=== PATIENT | male | born 1985 | race Caucasian/White ===

== ENCOUNTER 2019-02-06 19:23 | Inpatient (IN) | payer OTHER ==
[2019-02-06 21:29] VITALS: BMI 26.6
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
[2019-02-06] MEDS ORDERED: MAGNESIUM HYDROX 2400MG/30ML ORAL SUSPENSION 30 ML CUP PO PRN (23:01)
[2019-02-06] MEDS ORDERED: MENTHOL/PHENOL 1 EACH UD MM PRN (23:01)
[2019-02-06] MEDS ORDERED: MAG HYDROX/AL HYDROX/SIMETH 30 ML UNIT-DOSE CUP PO PRN (23:01)
[2019-02-06] MEDS ORDERED: MELATONIN 5 MG TABLETS PO PRN (23:01)
[2019-02-06] MEDS ORDERED: IBUPROFEN 400 MG TABLET (FP) PO PRN (23:01)
[2019-02-06] MEDS ORDERED: guaiFENesin 200 MG/10 ML 10 ML UNIT-DOSE CUPS PO PRN (23:01)
[2019-02-06] MEDS ORDERED: P-EPHED 60MG/TRIPROLIDI 2.5MG TABLET PO PRN (23:01)
[2019-02-06] MEDS ORDERED: NICOTINE POLACRILEX 2 MG GUM BUC PRN (23:01)
[2019-02-06] MEDS ORDERED: hydrOXYzine PAMOATE 25 MG CAPSULE (FP) PO PRN (23:01)
[2019-02-06] MEDS ORDERED: ACETAMINOPHEN 325 MG TABLET (FP) PO PRN ×2 (23:01)
[2019-02-06] MEDS ORDERED: BISMUTH SUBSALICYLATE 524 MG/30 ML UD PO PRN (23:01)
[2019-02-06] MEDS ORDERED: DICYCLOMINE HCL 10 MG CAPSULE PO PRN (23:01)
[2019-02-06] MEDS ORDERED: ONDANSETRON *ODT* 4 MG TABLET SL PRN (23:01)
[2019-02-06] MEDS ORDERED: MAGNESIUM CITRATE 300 ML BOTTLE PO PRN (23:01)
[2019-02-06] MEDS ORDERED: cloNIDine HCL 0.1 MG TABLET PO PRN (23:06)
[2019-02-07] MEDS: diazePAM 5 MG TABLET PO SCH ×4 (06:07→22:03)
--- NOTE | 2019-02-07 09:20 | PN ---
S CIWA - CIWA Score Nausea/Vomitin-Mild Nausea/No Vomiting Muscle Tremors: 4-Moderate,w/Arms Extend Anxiety: 4-Mod. Anxious/Guarded Agitation: 3 Paroxysmal Sweats: 2 Orientation: 0-Oriented Tacttile Disturbances: 1-Very Mild Itch/Numbness Auditory Disturbances: 0-None Visual Disturbances: 0-None Headache: 2-Mild CIWA-Ar Total Score: 17 [facility] Progress Note (SOAP) Subjective: 34 years old male admitted on 02/06/19 for alcohol and benzo withdrawal sx management treated with valium detox regimen patient tolerated well methadone 30 mg verified last dose 02/03/19 continue methadone 30 mg po daily along with supportive therapies patient reported that his legs paralyzed "I do not want to talk about" ambulating with wheelchair x 6 months patient is alert oriented x 3 speech clearly coherently Objective: 02/07/19 09:23 Vital Signs Temperature 95.8 F L 02/07/19 06:22 Pulse Rate 55 L 02/07/19 06:22 Respiratory Rate 18 02/07/19 06:22 Blood Pressure 86/53 L 02/07/19 06:22 O2 Sat by Pulse Oximetry (%) 02/07/19 09:24 lab pending Assessment: 02/07/19 09:24 alcohol and benzo withdrawal sx Plan: continue valium detox regimen
[2019-02-07] MEDS: NICOTINE 21 MG/24 HOURS TOPICAL PATCH TD SCH (09:48)
[2019-02-07] MEDS: diazePAM 5 MG TABLET PO PRN ×2 (09:48→17:09)
[2019-02-07] MEDS: PRENATAL VITAMINS W/ FOLIC ACID TABLET (FP) PO SCH (09:51)
[2019-02-07] MEDS ORDERED: METHADONE HCL 10 MG TABLET PO ONE (10:00)
[2019-02-07 10:12] LABS: HEMATOCRIT 32.6 % (35.4-49); HEMOGLOBIN 11.5 GM/dL (11.7-16.9); MCH 34.1 pg (25.7-33.7); MCHC 35.1 g/dl (32.0-35.9); MEAN CELL VOLUME 96.9 fl (80-96); MEAN PLT VOLUME 8.1 fl (7.5-11.1); PLATELET COUNT 247 K/MM3 (134-434); RBC 3.37 M/mm3 (4.00-5.60); RDW 13.5 % (11.9-15.9); WHITE BLOOD COUNT 5.1 K/mm3 (4.0-10.0)
--- NOTE | 2019-02-07 10:24 | EKG ---
Test Reason : Blood Pressure : / mmHG Vent. Rate : 057 BPM Atrial Rate : 057 BPM P-R Int : 144 ms QRS Dur : 102 ms QT Int : 424 ms P-R-T Axes : 010 -02 023 degrees QTc Int : 412 ms SINUS BRADYCARDIA CANNOT RULE OUT ANTERIOR INFARCT , AGE UNDETERMINED ABNORMAL ECG NO PREVIOUS ECGS AVAILABLE Confirmed by MD Rosemary, Az ([id number]) on 02/07/2019 10:24:16 AM Referred By: Confirmed By:Az Riley MD
[2019-02-07 10:30] LABS: ALBUMIN 3.3 g/dl (3.4-5.0); BILIRUBIN,TOTAL 0.4 mg/dL (0.2-1); BLOOD UREA NITROGEN 13.9 mg/dL (7-18); CALCIUM 9.1 mg/dL (8.5-10.1); CREATININE 0.9 mg/dL (0.55-1.3); POTASSIUM 3.8 mmol/L (3.5-5.1); TOT PROT 6.5 g/dl (6.4-8.2)
[2019-02-07] MEDS: METHOCARBAMOL 500 MG TABLET PO PRN ×2 (12:35)
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
[2019-02-07] MEDS: SUVOREXANT 10 MG TABLET PO PRN (22:03)
[2019-02-07] MEDS: THIAMINE HCL 100 MG TABLET (FP) PO SCH (22:04)
[2019-02-08] MEDS: METHADONE HCL 10 MG TABLET PO SCH (06:09)
[2019-02-08] MEDS: diazePAM 5 MG TABLET PO SCH ×2 (06:16→18:17)
[2019-02-08] MEDS: METHOCARBAMOL 500 MG TABLET PO PRN ×3 (08:50→22:05)
[2019-02-08] MEDS: diazePAM 5 MG TABLET PO PRN ×3 (08:51→22:05)
--- NOTE | 2019-02-08 09:15 | PN ---
S CIWA - CIWA Score Nausea/Vomitin-Mild Nausea/No Vomiting Muscle Tremors: 4-Moderate,w/Arms Extend Anxiety: 3 Agitation: 3 Paroxysmal Sweats: 2 Orientation: 0-Oriented Tacttile Disturbances: 1-Very Mild Itch/Numbness Auditory Disturbances: 0-None Visual Disturbances: 0-None Headache: 0-None Present CIWA-Ar Total Score: 14 [facility] Progress Note (SOAP) Subjective: 34 years old male admitted on 02/06/19 for alcohol and benzo withdrawal sx management treated with valium detox regimen ambulating with wheelchair on hallway patient reported that he is taking neurontin 800 mg po 3-4 times daily consumer loan underwriter call [phone] no answer consumer loan underwriter call [phone] no record consumer loan underwriter call [phone] no record consumer loan underwriter call [phone] phone disconnected begin neurontine 100mg po tid Objective: 02/08/19 14:05 Vital Signs Temperature 97.2 F L 02/08/19 13:54 Pulse Rate 80 02/08/19 13:54 Respiratory Rate 18 02/08/19 13:54 Blood Pressure 125/78 02/08/19 13:54 O2 Sat by Pulse Oximetry (%) Laboratory Last Values WBC 5.1 K/mm3 (4.0-10.0) 02/07/19 07:45 RBC 3.37 M/mm3 (4.00-5.60) L 02/07/19 07:45 Hgb 11.5 GM/dL (11.7-16.9) L 02/07/19 07:45 Hct 32.6 % (35.4-49) L 02/07/19 07:45 MCV 96.9 fl (80-96) H 02/07/19 07:45 MCH 34.1 pg (25.7-33.7) H 02/07/19 07:45 MCHC 35.1 g/dl (32.0-35.9) 02/07/19 07:45 RDW 13.5 % (11.9-15.9) 02/07/19 07:45 Plt Count 247 K/MM3 (134-434) 02/07/19 07:45 MPV 8.1 fl (7.5-11.1) 02/07/19 07:45 Sodium 138 mmol/L (136-145) 02/07/19 07:45 Potassium 3.8 mmol/L (3.5-5.1) 02/07/19 07:45 Chloride 104 mmol/L (98-107) 02/07/19 07:45 Carbon Dioxide 28 mmol/L (21-32) 02/07/19 07:45 Anion Gap 6 MMOL/L (8-16) L 02/07/19 07:45 BUN 13.9 mg/dL (7-18) 02/07/19 07:45 Creatinine 0.9 mg/dL (0.55-1.3) 02/07/19 07:45 Est GFR (CKD-EPI)AfAm 129.61 02/07/19 07:45 Est GFR (CKD-EPI)NonAf 111.83 02/07/19 07:45 Random Glucose 109 mg/dL (74-106) H 02/07/19 07:45 Calcium 9.1 mg/dL (8.5-10.1) 02/07/19 07:45 Total Bilirubin 0.4 mg/dL (0.2-1) 02/07/19 07:45 AST 43 U/L (15-37) H 02/07/19 07:45 ALT 81 U/L (13-61) H 02/07/19 07:45 Alkaline Phosphatase 82 U/L (45-117) 02/07/19 07:45 Total Protein 6.5 g/dl (6.4-8.2) 02/07/19 07:45 Albumin 3.3 g/dl (3.4-5.0) L 02/07/19 07:45 RPR Titer Nonreactive (NONREACTIVE) 02/07/19 07:45 lab noted Assessment: 02/08/19 14:06 alcohol and benzo withdrawal sx Plan: continue valium detox regimen
[2019-02-08] MEDS: PRENATAL VITAMINS W/ FOLIC ACID TABLET (FP) PO SCH (10:14)
[2019-02-08] MEDS: NICOTINE 21 MG/24 HOURS TOPICAL PATCH TD SCH (10:14)
--- NOTE | 2019-02-08 10:50 | EKG ---
Test Reason : Blood Pressure : / mmHG Vent. Rate : 050 BPM Atrial Rate : 050 BPM P-R Int : 146 ms QRS Dur : 096 ms QT Int : 452 ms P-R-T Axes : 010 -03 019 degrees QTc Int : 412 ms SINUS BRADYCARDIA OTHERWISE NORMAL ECG WHEN COMPARED WITH ECG OF 06-FEB-2019 23:55, NO SIGNIFICANT CHANGE WAS FOUND Confirmed by BENJAMIN ÁLVAREZ MD ([id number]) on 02/08/2019 10:49:25 AM Referred By: STEVE Confirmed By:BENJAMIN ÁLVAREZ MD
[2019-02-08] MEDS: GABAPENTIN 300 MG CAPSULE (FP) PO SCH ×2 (15:52→22:06)
[2019-02-08] MEDS: SUVOREXANT 10 MG TABLET PO PRN (22:05)
[2019-02-08] MEDS: THIAMINE HCL 100 MG TABLET (FP) PO SCH (22:06)
[2019-02-09] MEDS: GABAPENTIN 300 MG CAPSULE (FP) PO SCH ×3 (05:49→22:21)
[2019-02-09] MEDS: METHADONE HCL 10 MG TABLET PO SCH (05:49)
[2019-02-09] MEDS ORDERED: diazePAM 5 MG TABLET PO ONE (06:00)
--- NOTE | 2019-02-09 09:30 | PN ---
Psychiatric Progress Note Vital Signs: Vital Signs Period Temp Pulse Resp BP Sys/Long Pulse Ox Last 24 Hr 95.9 F-97.7 F 79-88 18-18 121-135/68-90 Date of Session: 02/09/19 Chief Complaint:: "i'm having anxiety and i'm having trouble sleeping. HPI: Patient admitted to for alcohol, opioid, cocaine/crack, nicotine. Consultation ordered to address insomnia and anxiety. ROS: Patient is coherent, alert + oriented X3. Current Medications: Active Medications Generic Name Dose Route Start Last Admin Trade Name Freq PRN Reason Stop Dose Admin Acetaminophen 650 mg 02/06/19 23:01 Tylenol - PO Q6H PRN PAIN LEVEL 4 - 6 Acetaminophen 650 mg 02/06/19 23:01 Tylenol - PO Q6H PRN FEVER Al Hydroxide/Mg Hydroxide 30 ml 02/06/19 23:01 Mylanta Oral Suspension - PO Q6H PRN DYSPEPSIA Bismuth Subsalicylate 524 mg 02/06/19 23:01 Pepto-Bismol - PO Q1H PRN DIARRHEA Bupropion HCl 150 mg 02/08/19 10:00 02/08/19 10:14 Wellbutrin Xl - PO 150 mg DAILY ANGELA Administration Clonidine 0.1 mg 02/06/19 23:06 Catapres - PO Q6H PRN withdrawal sx's Diazepam 10 mg 02/06/19 23:01 02/08/19 22:05 Valium - PO 02/09/19 23:00 10 mg Q4H PRN Administration WITHDRAWAL(CONT SUBST) Dicyclomine HCl 10 mg 02/06/19 23:01 Bentyl - PO 02/12/19 23:05 Q6H PRN Abdominal Cramping Eucalyptus/Menthol/Phenol/Sorbitol 1 each 02/06/19 23:01 Cepastat Lozenge - MM 02/12/19 23:04 Q4H PRN SORE THROAT Gabapentin 300 mg 02/08/19 14:15 02/09/19 05:49 Neurontin - PO 300 mg TID ANGELA Administration Guaifenesin 10 ml 02/06/19 23:01 Robitussin - PO Q6H PRN COUGH Hydroxyzine Pamoate 25 mg 02/06/19 23:01 Vistaril - PO 02/12/19 23:04 Q6H PRN For Anxiety Ibuprofen 400 mg 02/06/19 23:01 Motrin - PO Q6H PRN PAIN LEVEL 1 - 3 Magnesium Citrate 300 ml 02/06/19 23:01 Citroma - PO Q48H PRN CONSTIPATION Magnesium Hydroxide 30 ml 02/06/19 23:01 Milk Of Magnesia - PO PRN PRN CONSTIPATION Melatonin 5 mg 02/06/19 23:01 02/07/19 00:00 Melatonin PO 5 mg HS PRN Administration INSOMNIA Methadone HCl 30 mg 02/08/19 06:00 02/09/19 05:49 Dolophine - PO 02/14/19 05:59 30 mg DAILY@0600 ANGELA Administration Methocarbamol 500 mg 02/06/19 23:01 02/08/19 22:05 Robaxin - PO 02/12/19 23:04 500 mg Q6H PRN Administration MUSCLE SPASMS Nicotine 21 mg 02/07/19 10:00 02/08/19 10:14 Nicoderm Patch - TD 21 mg DAILY ANGELA Administration Nicotine Polacrilex 2 mg 02/06/19 23:01 02/08/19 18:45 Nicorette Gum - BUC 2 mg Q2H PRN Administration NICOTINE REPLACEMENT RX Ondansetron HCl 4 mg 02/06/19 23:01 Zofran Odt - SL 02/12/19 23:05 Q12H PRN Nausea/Vomiting Multivit/Folic Acid/Iron 1 tab 02/07/19 10:00 02/08/19 10:14 Vitamins (Sjr) - PO 1 tab DAILY ANGELA Administration Pseudoephedrine/Triprolidine 1 combo 02/06/19 23:01 Actifed - PO 02/12/19 23:05 Q6H PRN NASAL CONGESTION Suvorexant 10 mg 02/07/19 22:00 02/08/19 22:05 Belsomra PO 02/10/19 21:59 10 mg HS PRN Administration INSOMNIA Thiamine HCl 100 mg 02/07/19 22:00 02/08/19 22:06 Vitamin B1 - PO 100 mg HS ANGELA Administration Medication(s) Change(s): Yes. Will d/c belsomra 10mg and will order Belsomra 15mg HS . Will d/c vistaril 25mg Q6h and will order vistaril 50mg q6h. Will d/c melatonin 5mg and order Melatonin 10mg HS. Current Side Effect: No Lab tests ordered: No Lab tests reviewed: Yes Provider note:: Patient seen by Dr. Plascencia. Dr. Plascencia note read and appreciated. Patient reports difficulty sleeping despite accepting Belsomra 10mg. He reports history of PTSD and anxiety. Will discontinue Belsomra 10mg + Melatonin 5mg HS + Vistaril 25mg q6h. Will order Belsomra 15mg HS + Vistaril 50mg q4h + Melatonin 10mg HS. Patient educated on the importance of proper sleep hygiene. Benefits and side effects discussed. Patient satisfied and receptive to feedback. Total face to face time:: 25 Mental Status Exam - Mental Status Exam Alert and Oriented to: Time, Place, Person Cognitive Function: Good Patient Appearance: Well Groomed Mood: Euthymic Affect: Mood Congruent Patient Behavior: Appropriate, Cooperative Speech Pattern: Appropriate Voice Loudness: Normal Thought Process: Goal Oriented Thought Disorder: Not Present Hallucinations: Denies Suicidal Ideation: Denies Homicidal Ideation: Denies Insight/Judgement: Poor Sleep: Poorly Appetite: Fair Muscle strength/Tone: Normal Gait/Station: Normal Psychiatric Treatment Plan - Problem List (1) Alcohol dependence with withdrawal, uncomplicated Current Visit: Yes (2) Sedative, hypnotic or anxiolytic dependence with withdrawal, uncomplicated Current Visit: Yes (3) Substance induced mood disorder Current Visit: Yes (4) Cannabis dependence, uncomplicated Current Visit: Yes (5) Cocaine dependence, uncomplicated Current Visit: Yes (6) History of posttraumatic stress disorder (PTSD) Current Visit: Yes (7) Insomnia Current Visit: Yes (8) Nicotine dependence Current Visit: Yes Qualifiers: Nicotine product type: cigarettes Substance use status: uncomplicated Qualified Code(s): F17.210 - Nicotine dependence, cigarettes, uncomplicated (9) Opioid dependence on agonist therapy Current Visit: Yes
[2019-02-09] MEDS: PRENATAL VITAMINS W/ FOLIC ACID TABLET (FP) PO SCH (10:43)
[2019-02-09] MEDS: NICOTINE 21 MG/24 HOURS TOPICAL PATCH TD SCH (10:43)
[2019-02-09] MEDS: diazePAM 5 MG TABLET PO PRN ×4 (10:43→22:24)
[2019-02-09] MEDS: METHOCARBAMOL 500 MG TABLET PO PRN (10:45)
--- NOTE | 2019-02-09 12:04 | PN ---
S CIWA - CIWA Score Nausea/Vomitin-No Nausea/No Vomiting Muscle Tremors: 1-None Visible, but [place] Anxiety: 1-Mildly Anxious Agitation: 1-Slight > Activity Paroxysmal Sweats: 2 Orientation: 0-Oriented Tacttile Disturbances: 2-Mild Itch/Numbness/Burn Auditory Disturbances: 0-None Visual Disturbances: 0-None Headache: 0-None Present CIWA-Ar Total Score: 7 [facility] Progress Note (SOAP) Subjective: interrupted sleep, sweats, lbp Objective: 02/09/19 12:00 Vital Signs Temperature 95.9 F L 02/09/19 09:10 Pulse Rate 81 02/09/19 09:10 Respiratory Rate 18 02/09/19 09:10 Blood Pressure 129/83 02/09/19 09:10 O2 Sat by Pulse Oximetry (%) Laboratory Tests 02/07/19 02/07/19 02/07/19 07:45 07:45 07:45 WBC 5.1 RBC 3.37 L Hgb 11.5 L Hct 32.6 L MCV 96.9 H MCH 34.1 H MCHC 35.1 RDW 13.5 Plt Count 247 MPV 8.1 Sodium 138 Potassium 3.8 Chloride 104 Carbon Dioxide 28 Anion Gap 6 L BUN 13.9 Creatinine 0.9 Est GFR (CKD-EPI)AfAm 129.61 Est GFR (CKD-EPI)NonAf 111.83 Random Glucose 109 H Calcium 9.1 Total Bilirubin 0.4 AST 43 H ALT 81 H Alkaline Phosphatase 82 Total Protein 6.5 Albumin 3.3 L RPR Titer Nonreactive pt aox3 in nad moving around in wheel chair 2nd partial paralysis Assessment: 02/09/19 12:01 withdrawal sx's opioid deep on agonist tx- methadone OTP 02/09/19 12:03 Plan: cont. detox increase fluids motrin prn
[2019-02-09] MEDS ORDERED: ONDANSETRON *ODT* 4 MG TABLET SL ONE (14:02)
[2019-02-09] MEDS ORDERED: SUVOREXANT 5 MG TABLET PO PRN (21:32)
[2019-02-09] MEDS ORDERED: SUVOREXANT 10 MG TABLET PO PRN (22:00)
[2019-02-09] MEDS ORDERED: MELATONIN 5 MG TABLETS PO PRN (22:00)
[2019-02-09] MEDS: THIAMINE HCL 100 MG TABLET (FP) PO SCH (22:21)
[2019-02-10] MEDS: hydrOXYzine PAMOATE 25 MG CAPSULE (FP) PO PRN ×2 (01:38→08:13)
[2019-02-10] MEDS: METHADONE HCL 10 MG TABLET PO SCH (05:50)
[2019-02-10] MEDS: GABAPENTIN 300 MG CAPSULE (FP) PO SCH (05:50)
[2019-02-10] MEDS: METHOCARBAMOL 500 MG TABLET PO PRN (08:13)
[2019-02-10 09:27] VITALS: BP 124/75; PULSE 89; TEMP 97.1
--- NOTE | 2019-02-10 09:31 | DS ---
[facility] Detox Discharge Summary Admission Date: 02/06/19 Discharge Date: 02/10/19 - History Present History: Alcohol Dependence, Sedative Dependence, MMTP - Physical Exam Results Vital Signs: Vital Signs Temperature 97.1 F L 02/10/19 09:27 Pulse Rate 89 02/10/19 09:27 Respiratory Rate 18 02/10/19 09:27 Blood Pressure 124/75 02/10/19 09:27 O2 Sat by Pulse Oximetry (%) - Treatment Hospital Course: Detox Protocol Followed, Detoxed Safely, Responded well, Discharged Condition Good, Rehab Referral Accepted Patient has Accepted a Rehab Referral to: [facility] - Medication Discharge Medications: Ambulatory Orders NK [No Known Home Medication] 02/06/19 - Diagnosis (1) Alcohol dependence with withdrawal, uncomplicated Current Visit: Yes Status: Chronic (2) Crohn disease Current Visit: Yes Status: Chronic Qualifiers: Gastrointestinal tract location: unspecified location (3) Sedative, hypnotic or anxiolytic dependence with withdrawal, uncomplicated Current Visit: Yes Status: Chronic (4) Wheel chair as ambulatory aid Current Visit: Yes Status: Chronic (5) Cannabis dependence, uncomplicated Current Visit: Yes Status: Chronic (6) Cocaine dependence, uncomplicated Current Visit: Yes Status: Chronic (7) Hepatitis C Current Visit: Yes Status: Chronic Qualifiers: Viral hepatitis chronicity: carrier Qualified Code(s): B18.2 - Chronic viral hepatitis C (8) History of posttraumatic stress disorder (PTSD) Current Visit: Yes Status: Chronic (9) Nicotine dependence Current Visit: Yes Status: Chronic Qualifiers: Nicotine product type: cigarettes Substance use status: uncomplicated Qualified Code(s): F17.210 - Nicotine dependence, cigarettes, uncomplicated (10) Paralysis of both lower limbs Current Visit: Yes Status: Chronic - AMA Did Patient Leave Against Medical Advice: No
[2019-02-10] MEDS: NICOTINE 21 MG/24 HOURS TOPICAL PATCH TD SCH (09:39)
[2019-02-10] MEDS: PRENATAL VITAMINS W/ FOLIC ACID TABLET (FP) PO SCH (09:39)
== END 2019-02-10 11:45 | disposition home or self-care (01) | DRG 773 ==
LOC: YASAS 19:23 → Y3N 22:43
PROVIDERS: ADMIT Allergy & Immunology; ATTEND Allergy & Immunology
PROC: HZ2ZZZZ Detoxification Services for Substance Abuse Treatment (ICD-10-PCS; principal; 2019-02-06)
DX: F10.230 Alcohol dependence with withdrawal, uncomplicated (principal); F13.230 Sedative, hypnotic or anxiolytic dependence with withdrawal, uncomplicated; F11.20 Opioid dependence, uncomplicated; F14.20 Cocaine dependence, uncomplicated; F12.20 Cannabis dependence, uncomplicated; F17.210 Nicotine dependence, cigarettes, uncomplicated; F19.24 Other psychoactive substance dependence with psychoactive substance-induced mood disorder; F43.10 Post-traumatic stress disorder, unspecified; G47.00 Insomnia, unspecified; K50.90 Crohn's disease, unspecified, without complications; G82.20 Paraplegia, unspecified; M62.9 Disorder of muscle, unspecified; Z74.09 Other reduced mobility; Z99.3 Dependence on wheelchair; Z86.69 Personal history of other diseases of the nervous system and sense organs; Z76.5 Malingerer [conscious simulation]; Z91.013 Allergy to seafood
CPT/HCPCS: 36415; 80053; 85027; 86593; 93005; 93010; Q0162

== ENCOUNTER 2020-04-05 18:18 | Inpatient (IN) | payer OTHER ==
[2020-04-05 20:38] VITALS: BMI 27.7
[2020-04-05] MEDS ORDERED: MAGNESIUM CITRATE 300 ML BOTTLE PO PRN (22:26)
[2020-04-05] MEDS ORDERED: ACETAMINOPHEN 325 MG TABLET (FP) PO PRN ×2 (22:26)
[2020-04-05] MEDS ORDERED: MENTHOL/PHENOL 1 EACH UD MM PRN (22:26)
[2020-04-05] MEDS ORDERED: MAGNESIUM HYDROX 2400MG/30ML ORAL SUSPENSION 30 ML CUP PO PRN (22:26)
[2020-04-05] MEDS ORDERED: METHADONE HCL 10 MG TABLET (FOR DETOX USE ONLY) PO ONE (22:26)
[2020-04-05] MEDS ORDERED: BISMUTH SUBSALICYLATE 524 MG/30 ML UD PO PRN (22:26)
[2020-04-05] MEDS ORDERED: ONDANSETRON *ODT* 4 MG TABLET SL PRN (22:26)
[2020-04-05] MEDS ORDERED: cloNIDine HCL 0.1 MG TABLET PO PRN (22:26)
[2020-04-05] MEDS ORDERED: MAG HYDROX/AL HYDROX/SIMETH 30 ML UNIT-DOSE CUP PO PRN (22:26)
[2020-04-05] MEDS: diazePAM 5 MG TABLET PO SCH (23:33)
[2020-04-05] MEDS: BACITRACIN 0.9 GM PACKET TP SCH (23:34)
[2020-04-05] MEDS: CEPHALEXIN MONOHYDRATE 500 MG CAPSULE (UD) PO SCH (23:34)
[2020-04-06] MEDS: CEPHALEXIN MONOHYDRATE 500 MG CAPSULE (UD) PO SCH ×4 (06:13→23:50)
[2020-04-06] MEDS: diazePAM 5 MG TABLET PO SCH ×4 (06:13→22:26)
[2020-04-06] MEDS: METHOCARBAMOL 500 MG TABLET PO PRN ×3 (06:14→22:30)
[2020-04-06] MEDS ORDERED: METHADONE HCL 10 MG TABLET (FOR DETOX USE ONLY) ONE (09:16)
[2020-04-06] MEDS ORDERED: METHADONE HCL 5 MG TABLET (FOR DETOX USE ONLY) ONE (09:16)
[2020-04-06] MEDS ORDERED: METHADONE (DETOX) 20 MG, METHADONE (DETOX) 5 MG PO ONE (10:00)
[2020-04-06] MEDS: BACITRACIN 0.9 GM PACKET TP SCH ×2 (10:45→22:25)
[2020-04-06] MEDS: NICOTINE 21 MG/24 HOURS TOPICAL PATCH TD SCH (10:46)
[2020-04-06] MEDS: PRENATAL VITAMINS W/ FOLIC ACID TABLET (FP) PO SCH (10:48)
[2020-04-06] MEDS: IBUPROFEN 400 MG TABLET (FP) PO PRN ×2 (10:49→22:30)
[2020-04-06] MEDS: diazePAM 5 MG TABLET PO PRN ×2 (12:06→19:58)
[2020-04-06 13:31] LABS: POTASSIUM 4.2 mmol/L (3.5-5.1)
[2020-04-06 13:34] LABS: HEMATOCRIT 29.1 % (35.4-49); MCH 30.3 pg (25.7-33.7); MCHC 34.4 g/dl (32.0-35.9); MEAN CELL VOLUME 88.2 fl (80-96); MEAN PLT VOLUME 7.6 fl (7.5-11.1); PLATELET COUNT 533 K/MM3 (134-434); RBC 3.29 M/mm3 (4.00-5.60); RDW 15.3 % (11.9-15.9); WHITE BLOOD COUNT 6.3 K/mm3 (4.0-10.0)
[2020-04-06 13:37] LABS: ALBUMIN 3.4 g/dl (3.4-5.0); BLOOD UREA NITROGEN 19.4 mg/dL (7-18); CALCIUM 8.7 mg/dL (8.5-10.1)
[2020-04-06 13:40] LABS: CREATININE 0.8 mg/dL (0.55-1.3)
[2020-04-06 13:42] LABS: BILIRUBIN,TOTAL 0.8 mg/dL (0.2-1); TOT PROT 7.5 g/dl (6.4-8.2)
[2020-04-06] MEDS: NICOTINE POLACRILEX 2 MG GUM BUC PRN (17:08)
[2020-04-06] MEDS ORDERED: SUVOREXANT 10 MG TABLET PO PRN (22:00)
[2020-04-06] MEDS ORDERED: MELATONIN 5 MG TABLETS PO SCH (22:00)
[2020-04-06] MEDS: THIAMINE HCL 100 MG TABLET (FP) PO SCH (22:24)
[2020-04-06] MEDS: HYDROCORTISONE 1% TOPICAL CREAM 30 GM TUBE TP PRN (22:33)
[2020-04-07] MEDS: CEPHALEXIN MONOHYDRATE 500 MG CAPSULE (UD) PO SCH ×3 (06:52→17:23)
[2020-04-07] MEDS: diazePAM 5 MG TABLET PO SCH ×3 (06:52→22:54)
[2020-04-07] MEDS: METHOCARBAMOL 500 MG TABLET PO PRN ×2 (06:52→14:46)
[2020-04-07] MEDS: diazePAM 5 MG TABLET PO PRN ×3 (08:18→17:26)
[2020-04-07] MEDS: NICOTINE 21 MG/24 HOURS TOPICAL PATCH TD SCH (09:42)
[2020-04-07] MEDS: IBUPROFEN 400 MG TABLET (FP) PO PRN (09:45)
[2020-04-07] MEDS: BACITRACIN 0.9 GM PACKET TP SCH ×2 (09:46→22:55)
[2020-04-07] MEDS: PRENATAL VITAMINS W/ FOLIC ACID TABLET (FP) PO SCH (09:47)
[2020-04-07] MEDS ORDERED: METHADONE HCL 10 MG TABLET (FOR DETOX USE ONLY) PO ONE (10:00)
[2020-04-07] MEDS: THIAMINE HCL 100 MG TABLET (FP) PO SCH (22:55)
[2020-04-07] MEDS: NAPROXEN 375 MG TABLET PO PRN (22:55)
[2020-04-07] MEDS: SUVOREXANT 5 MG TABLET PO PRN (23:07)
[2020-04-08] MEDS: CEPHALEXIN MONOHYDRATE 500 MG CAPSULE (UD) PO SCH ×4 (00:05→17:18)
[2020-04-08] MEDS: diazePAM 5 MG TABLET PO SCH ×2 (05:12→17:19)
[2020-04-08] MEDS ORDERED: METHADONE HCL 5 MG TABLET (FOR DETOX USE ONLY) ONE (08:44)
[2020-04-08] MEDS ORDERED: METHADONE HCL 10 MG TABLET (FOR DETOX USE ONLY) ONE (08:45)
[2020-04-08] MEDS: NICOTINE 21 MG/24 HOURS TOPICAL PATCH TD SCH (09:02)
[2020-04-08] MEDS: diazePAM 5 MG TABLET PO PRN ×3 (09:03→19:30)
[2020-04-08] MEDS: BACITRACIN 0.9 GM PACKET TP SCH ×2 (09:03→22:36)
[2020-04-08] MEDS: NAPROXEN 375 MG TABLET PO PRN ×2 (09:03→19:35)
[2020-04-08] MEDS ORDERED: METHADONE (DETOX) 10 MG, METHADONE (DETOX) 5 MG PO ONE (10:00)
[2020-04-08] MEDS: HYDROCORTISONE 1% TOPICAL CREAM 30 GM TUBE TP PRN (10:29)
[2020-04-08] MEDS: FERROUS SO4 325 MG TABLET (FP) PO SCH (17:18)
[2020-04-08] MEDS: METHOCARBAMOL 500 MG TABLET PO PRN (19:36)
[2020-04-08] MEDS: NICOTINE POLACRILEX 2 MG GUM BUC PRN (19:46)
[2020-04-08] MEDS: SUVOREXANT 5 MG TABLET PO PRN (22:36)
[2020-04-08] MEDS: THIAMINE HCL 100 MG TABLET (FP) PO SCH (22:37)
[2020-04-09] MEDS: CEPHALEXIN MONOHYDRATE 500 MG CAPSULE (UD) PO SCH ×4 (00:32→17:43)
[2020-04-09] MEDS: METHOCARBAMOL 500 MG TABLET PO PRN ×3 (01:18→23:12)
[2020-04-09] MEDS ORDERED: diazePAM 5 MG TABLET PO ONE (06:00)
[2020-04-09] MEDS ORDERED: METHADONE HCL 10 MG TABLET (FOR DETOX USE ONLY) PO ONE (10:00)
[2020-04-09] MEDS: BACITRACIN 0.9 GM PACKET TP SCH ×2 (10:17→22:58)
[2020-04-09] MEDS: NAPROXEN 375 MG TABLET PO PRN ×2 (10:17→23:12)
[2020-04-09] MEDS: FERROUS SO4 325 MG TABLET (FP) PO SCH ×3 (10:17→17:43)
[2020-04-09] MEDS: NICOTINE 21 MG/24 HOURS TOPICAL PATCH TD SCH (10:18)
[2020-04-09] MEDS: NICOTINE POLACRILEX 2 MG GUM BUC PRN (11:52)
[2020-04-09] MEDS ORDERED: hydrOXYzine PAMOATE 25 MG CAPSULE (FP) PO ONE (11:59)
[2020-04-09] MEDS: hydrOXYzine PAMOATE 50 MG CAPSULE (FP) PO PRN (17:46)
[2020-04-09] MEDS ORDERED: SUVOREXANT 20 MG TABLET PO PRN (22:00)
[2020-04-09] MEDS: THIAMINE HCL 100 MG TABLET (FP) PO SCH (22:58)
[2020-04-10] MEDS: CEPHALEXIN MONOHYDRATE 500 MG CAPSULE (UD) PO SCH ×3 (00:22→12:03)
[2020-04-10] MEDS ORDERED: METHADONE HCL 5 MG TABLET (FOR DETOX USE ONLY) PO ONE (06:00)
[2020-04-10] MEDS: hydrOXYzine PAMOATE 50 MG CAPSULE (FP) PO PRN (06:48)
[2020-04-10] MEDS: FERROUS SO4 325 MG TABLET (FP) PO SCH ×2 (07:54→12:07)
[2020-04-10 09:22] VITALS: BP 129/66; PULSE 66; TEMP 98.1
[2020-04-10] MEDS: BACITRACIN 0.9 GM PACKET TP SCH (10:26)
[2020-04-10] MEDS: METHOCARBAMOL 500 MG TABLET PO PRN (10:30)
[2020-04-10] MEDS: NICOTINE 21 MG/24 HOURS TOPICAL PATCH TD SCH (10:31)
== END 2020-04-10 12:47 | disposition other institution (70) | DRG 773 ==
LOC: YASAS 18:18 → Y6N 21:23
PROVIDERS: ADMIT Allergy & Immunology; ATTEND Allergy & Immunology
PROC: HZ2ZZZZ Detoxification Services for Substance Abuse Treatment (ICD-10-PCS; principal; 2020-04-05)
DX: F11.23 Opioid dependence with withdrawal (principal); F10.230 Alcohol dependence with withdrawal, uncomplicated; F13.20 Sedative, hypnotic or anxiolytic dependence, uncomplicated; F12.20 Cannabis dependence, uncomplicated; F17.210 Nicotine dependence, cigarettes, uncomplicated; F19.282 Other psychoactive substance dependence with psychoactive substance-induced sleep disorder; F19.24 Other psychoactive substance dependence with psychoactive substance-induced mood disorder; F43.10 Post-traumatic stress disorder, unspecified; K50.90 Crohn's disease, unspecified, without complications; D64.9 Anemia, unspecified; L03.113 Cellulitis of right upper limb; L30.9 Dermatitis, unspecified; L98.8 Other specified disorders of the skin and subcutaneous tissue; H55.00 Unspecified nystagmus; B18.2 Chronic viral hepatitis C; Z91.5 Personal history of self-harm; Z86.69 Personal history of other diseases of the nervous system and sense organs; Z99.89 Dependence on other enabling machines and devices
CPT/HCPCS: 36415; 80053; 85027; 86780; 93005; 93010; C9803; Q0162; U0003

== ENCOUNTER 2020-04-10 13:03 | Inpatient (IN) | payer OTHER ==
[2020-04-10] MEDS ORDERED: ACETAMINOPHEN 325 MG TABLET (FP) PO PRN (14:42)
[2020-04-10] MEDS ORDERED: P-EPHED 60MG/TRIPROLIDI 2.5MG TABLET PO PRN (14:42)
[2020-04-10] MEDS ORDERED: MENTHOL/PHENOL 1 EACH UD MM PRN (14:42)
[2020-04-10] MEDS ORDERED: MAGNESIUM HYDROX 2400MG/30ML ORAL SUSPENSION 30 ML CUP PO PRN (14:42)
[2020-04-10] MEDS ORDERED: LOPERAMIDE HCL 2 MG CAPSULE PO PRN (14:42)
[2020-04-10] MEDS ORDERED: MAGNESIUM CITRATE 300 ML BOTTLE PO PRN (14:42)
[2020-04-10] MEDS ORDERED: hydrOXYzine PAMOATE 25 MG CAPSULE (FP) PO PRN (14:42)
[2020-04-10] MEDS ORDERED: guaiFENesin 200 MG/10 ML 10 ML UNIT-DOSE CUPS PO PRN (14:42)
[2020-04-10] MEDS ORDERED: MAG HYDROX/AL HYDROX/SIMETH 30 ML UNIT-DOSE CUP PO PRN (14:42)
[2020-04-10] MEDS ORDERED: IBUPROFEN 400 MG TABLET (FP) PO PRN (14:42)
[2020-04-10] MEDS ORDERED: CEPHALEXIN MONOHYDRATE 500 MG CAPSULE (UD) PO SCH (14:45)
[2020-04-10] MEDS: METHOCARBAMOL 500 MG TABLET PO PRN (15:42)
[2020-04-10] MEDS: hydrOXYzine PAMOATE 50 MG CAPSULE (FP) PO PRN ×2 (15:42→22:04)
[2020-04-10] MEDS ORDERED: FAMOTIDINE 20 MG TABLET PO ONE (15:54)
[2020-04-10] MEDS: CEPHALEXIN MONOHYDRATE 500 MG CAPSULE (UD) PO SCH ×2 (17:44→23:15)
[2020-04-10] MEDS: NICOTINE POLACRILEX 2 MG GUM BUC PRN (17:45)
[2020-04-10] MEDS ORDERED: FAMOTIDINE 20 MG TABLET PO SCH (22:00)
[2020-04-10] MEDS ORDERED: MELATONIN 5 MG TABLETS PO SCH (22:00)
[2020-04-10] MEDS: THIAMINE HCL 100 MG TABLET (FP) PO SCH (22:02)
[2020-04-10] MEDS: NAPROXEN 500 MG TABLET PO SCH (22:02)
[2020-04-10] MEDS: SUVOREXANT 20 MG TABLET PO PRN (22:02)
[2020-04-11] MEDS: METHOCARBAMOL 500 MG TABLET PO PRN ×3 (06:47→21:07)
[2020-04-11] MEDS: hydrOXYzine PAMOATE 50 MG CAPSULE (FP) PO PRN ×3 (06:47→21:07)
[2020-04-11] MEDS: CEPHALEXIN MONOHYDRATE 500 MG CAPSULE (UD) PO SCH ×4 (06:47→23:32)
[2020-04-11] MEDS ORDERED: FAMOTIDINE 20 MG TABLET PO ONE (09:36)
[2020-04-11] MEDS: NAPROXEN 500 MG TABLET PO SCH ×2 (10:25→21:07)
[2020-04-11] MEDS: NICOTINE 7 MG/24 HOURS TOPICAL PATCH TD SCH (10:27)
[2020-04-11] MEDS: PRENATAL VITAMINS W/ FOLIC ACID TABLET (FP) PO SCH (10:28)
[2020-04-11] MEDS: HYDROCORTISONE 1% TOPICAL CREAM 30 GM TUBE TP SCH ×2 (12:26→21:06)
[2020-04-11] MEDS: NICOTINE POLACRILEX 2 MG GUM BUC PRN (17:50)
[2020-04-11] MEDS: SILVER SULFADIAZINE 1% TOP CREAM 50 GM JAR TP SCH (21:06)
[2020-04-11] MEDS: THIAMINE HCL 100 MG TABLET (FP) PO SCH (21:07)
[2020-04-11] MEDS: SUVOREXANT 20 MG TABLET PO PRN (21:07)
[2020-04-11] MEDS: FAMOTIDINE 20 MG TABLET PO SCH (21:09)
[2020-04-12] MEDS: CEPHALEXIN MONOHYDRATE 500 MG CAPSULE (UD) PO SCH ×3 (06:50→17:50)
[2020-04-12] MEDS: hydrOXYzine PAMOATE 50 MG CAPSULE (FP) PO PRN ×3 (06:50→21:56)
[2020-04-12] MEDS: METHOCARBAMOL 500 MG TABLET PO PRN ×3 (06:50→21:56)
[2020-04-12] MEDS: FAMOTIDINE 20 MG TABLET PO SCH ×2 (06:51→21:56)
[2020-04-12] MEDS: HYDROCORTISONE 1% TOPICAL CREAM 30 GM TUBE TP SCH ×2 (10:35→21:57)
[2020-04-12] MEDS: PRENATAL VITAMINS W/ FOLIC ACID TABLET (FP) PO SCH (10:35)
[2020-04-12] MEDS: NICOTINE 7 MG/24 HOURS TOPICAL PATCH TD SCH (10:35)
[2020-04-12] MEDS: SILVER SULFADIAZINE 1% TOP CREAM 50 GM JAR TP SCH ×2 (11:56→21:56)
[2020-04-12] MEDS: NAPROXEN 500 MG TABLET PO SCH (11:56)
[2020-04-12] MEDS: SUVOREXANT 20 MG TABLET PO PRN (21:56)
[2020-04-12] MEDS: NAPROXEN 500 MG TABLET PO PRN (21:56)
[2020-04-12] MEDS: THIAMINE HCL 100 MG TABLET (FP) PO SCH (21:57)
[2020-04-13] MEDS: CEPHALEXIN MONOHYDRATE 500 MG CAPSULE (UD) PO SCH ×4 (01:07→17:21)
[2020-04-13] MEDS: hydrOXYzine PAMOATE 50 MG CAPSULE (FP) PO PRN ×2 (06:38→13:50)
[2020-04-13] MEDS: FAMOTIDINE 20 MG TABLET PO SCH ×2 (06:38→21:59)
[2020-04-13] MEDS: METHOCARBAMOL 500 MG TABLET PO PRN ×3 (06:38→22:01)
[2020-04-13 06:57] VITALS: TEMP 97.8
[2020-04-13] MEDS: PRENATAL VITAMINS W/ FOLIC ACID TABLET (FP) PO SCH (10:20)
[2020-04-13] MEDS: NICOTINE 7 MG/24 HOURS TOPICAL PATCH TD SCH (10:20)
[2020-04-13] MEDS: HYDROCORTISONE 1% TOPICAL CREAM 30 GM TUBE TP SCH ×2 (10:22→21:59)
[2020-04-13] MEDS: SILVER SULFADIAZINE 1% TOP CREAM 50 GM JAR TP SCH ×2 (10:22→21:59)
[2020-04-13] MEDS: NAPROXEN 500 MG TABLET PO PRN ×2 (10:23→22:01)
[2020-04-13] MEDS: THIAMINE HCL 100 MG TABLET (FP) PO SCH (21:58)
[2020-04-13] MEDS: SUVOREXANT 20 MG TABLET PO PRN (22:00)
[2020-04-14] MEDS: CEPHALEXIN MONOHYDRATE 500 MG CAPSULE (UD) PO SCH ×2 (01:24→06:45)
[2020-04-14] MEDS: FAMOTIDINE 20 MG TABLET PO SCH (06:46)
[2020-04-14] MEDS: METHOCARBAMOL 500 MG TABLET PO PRN (06:46)
[2020-04-14 07:09] VITALS: BP 131/87; PULSE 58
== END 2020-04-14 10:05 | disposition left against medical advice (07) | DRG 770 ==
LOC: YASAS 13:03 → Y5N 13:04
PROVIDERS: ADMIT Allergy & Immunology; ATTEND Allergy & Immunology
PROC: HZ42ZZZ Group Counseling for Substance Abuse Treatment, Cognitive-Behavioral (ICD-10-PCS; principal; 2020-04-10)
DX: F11.20 Opioid dependence, uncomplicated (principal); F10.20 Alcohol dependence, uncomplicated; F13.20 Sedative, hypnotic or anxiolytic dependence, uncomplicated; F19.282 Other psychoactive substance dependence with psychoactive substance-induced sleep disorder; L03.115 Cellulitis of right lower limb; L30.9 Dermatitis, unspecified; L98.8 Other specified disorders of the skin and subcutaneous tissue; Z87.81 Personal history of (healed) traumatic fracture; Z99.89 Dependence on other enabling machines and devices; S91.011D Laceration without foreign body, right ankle, subsequent encounter; W28.XXXD Contact with powered lawn mower, subsequent encounter; Z91.013 Allergy to seafood
CPT/HCPCS: C9803; U0003